=== PATIENT | female | born 1935 | race Two or more races ===

== ENCOUNTER 2021-12-08 16:55 | Inpatient (IN) | payer OTHER, MEDICAID ==
[~2021-12-08] VITALS: Ht 127 cm; Wt 60.9 kg
[2021-12-08 18:40] LABS: White Blood Cell 3.9 10^3/uL (4.4-10.8)
[2021-12-08 18:43] LABS: Basophils # (auto) 0.1 10 ^3/uL (0-0.2); Basophils % (auto) 3.1 % (0.0-2.0); Eosinophils # (auto) 0.2 10 ^3/uL (0-0.8); Eosinophils % (auto) 4.1 % (0.0-7.0); Hematocrit 40.4 % (36.0-46.0); Hemoglobin 14.2 g/dL (12.2-16.2); Lymphocytes # (auto) 0.4 10 ^3/uL (0.4-5.4); Lymphocytes % (auto) 11.3 % (10.0-50.0); Mean Corpuscular Hemoglobin 31.6 pg (28.0-32.0); Mean Corpuscular Volume 90.2 fL (80.0-100.0); Monocytes # (auto) 0.4 10 ^3/uL (0-1.3); Monocytes % (auto) 9.6 % (0.0-12.0); Neutrophils # (auto) 2.8 10 ^3/uL (1.6-8.6); Neutrophils % (auto) 71.9 % (37.0-80.0); Nucleated Red Blood Cells % 0.1 %; Red Blood Cells 4.48 10^6/uL (4.0-5.20); Red Cell Distribution Width 13.4 % (11.8-14.3)
[2021-12-08 18:57] LABS: Calcium 9.3 mg/dL (8.5-10.1); Potassium 4.3 mmol/L (3.5-5.1)
[2021-12-08 18:59] LABS: BUN/Creatinine Ratio 33.8
[2021-12-08 19:02] LABS: Bilirubin, Total 0.6 mg/dL (0.2-1.0); Total Protein 7.5 g/dL (6.4-8.2)
[2021-12-09] VITALS (9 sets, daily range): BP systolic 94–178; BP diastolic 54–97
[2021-12-09] MEDS ORDERED: ONDANSETRON HCL 4 MG/2 ML VIAL IV PRN (02:45)
[2021-12-09] MEDS ORDERED: DexAMETHasone SOD PHOS 10MG/1ML VIAL INJ IV ONE (08:45)
[2021-12-09] MEDS ORDERED: ALENDRONATE SODIUM 10 MG TAB PO SCH (09:00)
[2021-12-09] MEDS ORDERED: CALCIUM ACETATE 667 MG CAP PO SCH (10:00)
[2021-12-09] MEDS ORDERED: PANTOPRAZOLE 40 MG TAB PO SCH (10:00)
[2021-12-09] MEDS ORDERED: OMEP20TA PO (10:06)
[2021-12-09] MEDS ORDERED: SERT25TA84 PO (10:06)
[2021-12-09] MEDS ORDERED: FOLI1TAB6 PO (10:06)
[2021-12-09 10:31] LABS: Hepatitis B Surface Antibody Negative (Negative)
[2021-12-09] MEDS: FOLIC ACID 1 MG TAB PO SCH (10:53)
[2021-12-09] MEDS: PANTOPRAZOLE 40 MG TAB PO SCH (10:53)
[2021-12-09] MEDS: CHOLECALCIFEROL (VITD3) 1,000UNIT=25mCg TAB PO SCH (10:53)
[2021-12-09] MEDS: SERTRALINE HCL 50 MG TAB PO SCH (10:54)
[2021-12-09 13:04] LABS: Hepatitis C Antibody Negative (Negative)
[2021-12-09] MEDS: DexAMETHasone SOD PHOS 4 MG/1ML SDV INJ IV SCH ×2 (14:03→18:21)
[2021-12-09 15:25] LABS: White Blood Cell 3.9 10^3/uL (4.4-10.8)
[2021-12-09 15:27] LABS: Hematocrit 40.8 % (36.0-46.0); Hemoglobin 13.7 g/dL (12.2-16.2); Mean Corpuscular Hemoglobin 30.6 pg (28.0-32.0); Mean Corpuscular Hgb Conc. 33.7 g/dL (32.0-36.0); Mean Corpuscular Volume 90.9 fL (80.0-100.0); Red Blood Cells 4.48 10^6/uL (4.0-5.20); Red Cell Distribution Width 13.7 % (11.8-14.3)
[2021-12-09 15:34] LABS: Basophils % (manual) 0 (0.0-2.0); Blast Cells 0; Eosinophils % (manual) 0 (0-7); Metamyelocytes % 0; Myelocytes % 0; Promyelocytes % 0; Reactive Lymphocytes 0
[2021-12-09 17:54] LABS: Band Neutrophils % (manual) 1; Lymphocytes % (manual) 4 (10.0-50.0); Monocytes % (manual) 2 (0-12)
[2021-12-09 19:32] LABS: Urine WBC None Seen /hpf (0 - 5)
[2021-12-09 19:54] LABS: Urine Bacteria NONE SEEN /hpf (None Seen); Urine Blood 1+ /uL (Negative); Urine Specific Gravity 1.014 (1.001-1.035)
[2021-12-10] MEDS: DexAMETHasone SOD PHOS 4 MG/1ML SDV INJ IV SCH ×5 (00:17→23:26)
[2021-12-10 04:50] VITALS: BP 126/71
[2021-12-10 05:41] LABS: BUN/Creatinine Ratio 39.3; Calcium 9.1 mg/dL (8.5-10.1); Potassium 3.9 mmol/L (3.5-5.1)
[2021-12-10 05:49] LABS: Basophils # (auto) 0 10 ^3/uL (0-0.2); Basophils % (auto) 0.1 % (0.0-2.0); Eosinophils # (auto) 0 10 ^3/uL (0-0.8); Hemoglobin 13.1 g/dL (12.2-16.2); Lymphocytes # (auto) 0.4 10 ^3/uL (0.4-5.4); Monocytes # (auto) 0.3 10 ^3/uL (0-1.3); Nucleated Red Blood Cells % 0.1 %; White Blood Cell 7.7 10^3/uL (4.4-10.8)
[2021-12-10 05:50] LABS: Lymphocytes % (auto) 5.2 % (10.0-50.0); Mean Corpuscular Hgb Conc. 34.5 g/dL (32.0-36.0); Mean Corpuscular Volume 89.7 fL (80.0-100.0); Monocytes % (auto) 3.6 % (0.0-12.0); Neutrophils # (auto) 7.1 10 ^3/uL (1.6-8.6); Neutrophils % (auto) 91.1 % (37.0-80.0); Red Blood Cells 4.23 10^6/uL (4.0-5.20); Red Cell Distribution Width 13.2 % (11.8-14.3)
[2021-12-10] MEDS: PANTOPRAZOLE 40 MG TAB PO SCH (08:25)
[2021-12-10] MEDS: SERTRALINE HCL 50 MG TAB PO SCH (08:26)
[2021-12-10] MEDS: CHOLECALCIFEROL (VITD3) 1,000UNIT=25mCg TAB PO SCH (08:27)
[2021-12-10] MEDS: FOLIC ACID 1 MG TAB PO SCH (08:27)
[2021-12-10 08:36] VITALS: BP 150/80
[2021-12-10 13:00] VITALS: BP 126/49
[2021-12-10 16:55] VITALS: BP 127/58
[2021-12-10 22:00] VITALS: BP 162/68
[2021-12-10] MEDS: hydrALAZINE HCL 20 MG/ML VL IV PRN (23:27)
[2021-12-11 02:30] VITALS: BP 128/58
[2021-12-11 04:39] VITALS: BP 125/62
[2021-12-11] MEDS: DexAMETHasone SOD PHOS 4 MG/1ML SDV INJ IV SCH ×4 (06:00→23:53)
[2021-12-11 07:00] LABS: Basophils # (auto) 0 10 ^3/uL (0-0.2); Basophils % (auto) 0.2 % (0.0-2.0); Eosinophils # (auto) 0 10 ^3/uL (0-0.8); Lymphocytes # (auto) 0.5 10 ^3/uL (0.4-5.4); Monocytes # (auto) 0.3 10 ^3/uL (0-1.3); Neutrophils # (auto) 10.4 10 ^3/uL (1.6-8.6); Red Cell Distribution Width 13.5 % (11.8-14.3); White Blood Cell 11.2 10^3/uL (4.4-10.8)
[2021-12-11 07:04] LABS: Hematocrit 36.1 % (36.0-46.0); Hemoglobin 12.6 g/dL (12.2-16.2); Lymphocytes % (auto) 4.2 % (10.0-50.0); Mean Corpuscular Hemoglobin 31.5 pg (28.0-32.0); Mean Corpuscular Volume 89.9 fL (80.0-100.0); Monocytes % (auto) 2.6 % (0.0-12.0); Nucleated Red Blood Cells % 0.1 %; Red Blood Cells 4.01 10^6/uL (4.0-5.20)
[2021-12-11 07:20] LABS: Potassium 4.1 mmol/L (3.5-5.1)
[2021-12-11 07:22] LABS: BUN/Creatinine Ratio 43.9
[2021-12-11 09:00] VITALS: BP 129/48
[2021-12-11] MEDS: PANTOPRAZOLE 40 MG TAB PO SCH (10:52)
[2021-12-11] MEDS: SERTRALINE HCL 50 MG TAB PO SCH (10:52)
[2021-12-11] MEDS: FOLIC ACID 1 MG TAB PO SCH (10:52)
[2021-12-11] MEDS: CHOLECALCIFEROL (VITD3) 1,000UNIT=25mCg TAB PO SCH (10:52)
[2021-12-11 12:00] VITALS: BP 124/70
[2021-12-11 18:00] VITALS: BP 157/63
[2021-12-11] MEDS: hydrALAZINE HCL 20 MG/ML VL IV PRN (20:01)
[2021-12-11] MEDS: ACETAMINOPHEN 325 MG TAB PO PRN (21:49)
[2021-12-12 05:00] VITALS: BP 154/54
[2021-12-12] MEDS: DexAMETHasone SOD PHOS 4 MG/1ML SDV INJ IV SCH ×4 (05:57→23:33)
[2021-12-12 09:00] VITALS: BP 115/52
[2021-12-12] MEDS: FOLIC ACID 1 MG TAB PO SCH (10:14)
[2021-12-12] MEDS: CHOLECALCIFEROL (VITD3) 1,000UNIT=25mCg TAB PO SCH (10:14)
[2021-12-12] MEDS: SERTRALINE HCL 50 MG TAB PO SCH (10:15)
[2021-12-12] MEDS: PANTOPRAZOLE 40 MG TAB PO SCH (10:15)
[2021-12-12] MEDS: ACETAMINOPHEN 325 MG TAB PO PRN (10:18)
[2021-12-12 12:04] LABS: Basophils # (auto) 0 10 ^3/uL (0-0.2); Basophils % (auto) 0.3 % (0.0-2.0); Eosinophils # (auto) 0 10 ^3/uL (0-0.8); Hemoglobin 12.8 g/dL (12.2-16.2)
[2021-12-12 12:08] LABS: Hematocrit 37.3 % (36.0-46.0); Lymphocytes # (auto) 0.4 10 ^3/uL (0.4-5.4); Lymphocytes % (auto) 3.3 % (10.0-50.0); Mean Corpuscular Hgb Conc. 34.4 g/dL (32.0-36.0); Monocytes # (auto) 0.5 10 ^3/uL (0-1.3); Monocytes % (auto) 4.4 % (0.0-12.0); Neutrophils # (auto) 10.4 10 ^3/uL (1.6-8.6); Nucleated Red Blood Cells % 0.1 %; Red Blood Cells 4.15 10^6/uL (4.0-5.20); Red Cell Distribution Width 13.7 % (11.8-14.3); White Blood Cell 11.3 10^3/uL (4.4-10.8)
[2021-12-12 12:25] LABS: Albumin 3.2 g/dL (3.4-5.0); Calcium 8.4 mg/dL (8.5-10.1)
[2021-12-12 12:28] LABS: BUN/Creatinine Ratio 38.4; Bilirubin, Total 0.4 mg/dL (0.2-1.0); Total Protein 6.5 g/dL (6.4-8.2)
[2021-12-12 13:13] VITALS: BP 130/58
[2021-12-12 17:00] VITALS: BP 143/60
[2021-12-12 22:00] VITALS: BP 159/80
[2021-12-13 05:00] VITALS: BP 152/60
[2021-12-13] MEDS: DexAMETHasone SOD PHOS 4 MG/1ML SDV INJ IV SCH (06:00)
[2021-12-13 08:30] VITALS: BP 96/37
[2021-12-13 09:00] VITALS: BP 96/37
[2021-12-13 09:02] LABS: Hematocrit 39.5 % (36.0-46.0); Hemoglobin 13.5 g/dL (12.2-16.2); Mean Corpuscular Hemoglobin 30.7 pg (28.0-32.0); Mean Corpuscular Hgb Conc. 34.3 g/dL (32.0-36.0); Mean Corpuscular Volume 89.5 fL (80.0-100.0); Red Blood Cells 4.41 10^6/uL (4.0-5.20); Red Cell Distribution Width 13.4 % (11.8-14.3); White Blood Cell 11.4 10^3/uL (4.4-10.8)
[2021-12-13] MEDS: CHOLECALCIFEROL (VITD3) 1,000UNIT=25mCg TAB PO SCH (09:03)
[2021-12-13] MEDS: PANTOPRAZOLE 40 MG TAB PO SCH (09:03)
[2021-12-13] MEDS: FOLIC ACID 1 MG TAB PO SCH (09:04)
[2021-12-13] MEDS: SERTRALINE HCL 50 MG TAB PO SCH (09:04)
[2021-12-13 09:16] LABS: Albumin 3.3 g/dL (3.4-5.0); Calcium 8.4 mg/dL (8.5-10.1); Potassium 3.9 mmol/L (3.5-5.1)
[2021-12-13 09:20] LABS: BUN/Creatinine Ratio 41.7; Bilirubin, Total 0.5 mg/dL (0.2-1.0); Total Protein 6.7 g/dL (6.4-8.2)
[2021-12-13 09:27] LABS: Band Neutrophils % (manual) 0; Basophils % (manual) 0 (0.0-2.0); Blast Cells 0; Eosinophils % (manual) 0 (0-7); Metamyelocytes % 0; Myelocytes % 0; Promyelocytes % 0; Reactive Lymphocytes 0
[2021-12-13 10:59] LABS: Lymphocytes % (manual) 6 (10.0-50.0); Monocytes % (manual) 5 (0-12)
[2021-12-13 13:00] VITALS: BP 108/49
[2021-12-13 17:00] VITALS: BP 146/63
[2021-12-13] MEDS: predniSONE 20 MG TAB PO SCH (22:36)
[2021-12-13 23:49] VITALS: BP 137/96
[2021-12-14 04:51] LABS: Mean Corpuscular Hemoglobin 30.5 pg (28.0-32.0); Mean Corpuscular Hgb Conc. 33.9 g/dL (32.0-36.0)
[2021-12-14 04:52] LABS: Hematocrit 40.1 % (36.0-46.0); Hemoglobin 13.6 g/dL (12.2-16.2); Red Blood Cells 4.45 10^6/uL (4.0-5.20); Red Cell Distribution Width 13.6 % (11.8-14.3)
[2021-12-14 04:54] LABS: Band Neutrophils % (manual) 0; Basophils % (manual) 0 (0.0-2.0); Blast Cells 0; Eosinophils % (manual) 0 (0-7); Metamyelocytes % 0; Promyelocytes % 0; Reactive Lymphocytes 0
[2021-12-14 04:56] LABS: Albumin 3.2 g/dL (3.4-5.0); Potassium 4.3 mmol/L (3.5-5.1)
[2021-12-14 04:58] LABS: Calcium 8.4 mg/dL (8.5-10.1)
[2021-12-14 05:00] VITALS: BP 117/41
[2021-12-14 05:01] LABS: Bilirubin, Total 0.4 mg/dL (0.2-1.0); Total Protein 6.1 g/dL (6.4-8.2)
[2021-12-14 07:30] VITALS: BP 141/78
[2021-12-14 08:03] LABS: Lymphocytes % (manual) 11 (10.0-50.0); Monocytes % (manual) 4 (0-12); Myelocytes % 1
[2021-12-14 09:00] VITALS: BP 141/78
[2021-12-14] MEDS: predniSONE 20 MG TAB PO SCH (09:08)
[2021-12-14] MEDS: SERTRALINE HCL 50 MG TAB PO SCH (09:09)
[2021-12-14] MEDS: CHOLECALCIFEROL (VITD3) 1,000UNIT=25mCg TAB PO SCH (09:09)
[2021-12-14] MEDS: PANTOPRAZOLE 40 MG TAB PO SCH (09:09)
[2021-12-14] MEDS: FOLIC ACID 1 MG TAB PO SCH (09:09)
[2021-12-14] MEDS ORDERED: PRED20TA2 PO (12:28)
[2021-12-14 13:09] VITALS: BP 121/80
[2021-12-14 13:49] VITALS: BP 121/80
[2021-12-15] MEDS ORDERED: ALENDRONATE SODIUM 10 MG TAB PO SCH (12:30)
== END 2021-12-14 16:01 | disposition home or self-care (01) | DRG 813 ==
LOC: ER 16:55 → OVERFLOW 12-09 02:42 → WEST WING 12-09 06:25
PROVIDERS: ADMIT Nurse Practitioner; ATTEND Internal Medicine
PROC: 30233R1 Transfusion of Nonautologous Platelets into Peripheral Vein, Percutaneous Approach (ICD-10-PCS; principal; 2021-12-09)
DX: D69.3 Immune thrombocytopenic purpura (principal); F32.A Depression, unspecified; E66.9 Obesity, unspecified; D72.819 Decreased white blood cell count, unspecified; Z20.822 Contact with and (suspected) exposure to COVID-19; Z68.36 Body mass index [BMI] 36.0-36.9, adult; Z85.3 Personal history of malignant neoplasm of breast; Z86.16 Personal history of COVID-19; Z90.11 Acquired absence of right breast and nipple; Z92.21 Personal history of antineoplastic chemotherapy; Z92.3 Personal history of irradiation; Z63.4 Disappearance and death of family member
CPT/HCPCS: 36415; 70450; 71045; 76700; 80048; 80053; 81001; 82607; 83615; 84436; 84443; 84484; 85007; 85025; 85027; 85613; 85670; 85705; 85732; 86038; 86431; 86706; 86803; 86850; 86900; 86901; 87340; 93005; 99291; G0378; J1100